=== PATIENT | female | born 1970 | race Caucasian/White ===

== ENCOUNTER 2016-11-25 09:26 | Emergency (ER) | payer OTHER ==
[~2016-11-25] VITALS: Ht 160 cm; Wt 100.2 kg
[~2016-11-25 09:26] MED LIST: ABILIFY30 MG PO; ACID CONTROL20 MG PO; ACIPHEX20 MG PO; ACTOS30 MG PO; ALBUTEROL17 GM IH; ALLEGRA ALLERG180 MG PO; ALLEGRA30 MG PO; ALPRAZOLAM0.25 MG PO; AMARYL2 MG PO; AMBIEN5 MG PO; AUGMENTIN875 MG PO; AZELASTINE205.5 MCG/ BOTH NARES; Advair HFA 115/21 IH; BUSPAR5 MG PO; CLARITIN10 MG PO; COUMADIN5 MG PO; DELTASONE20 MG PO; DICLOFENAC SODI50 MG PO; DILAUDID2 MG PO; EFFEXOR37.5 MG PO; FLEXERIL10 MG PO; GLUCOPHAGE1000 MG PO; GLUMETZA1000 M1 PO; GRALISE300 MG PO; HYCODAN SYRUP480 ML PO; KEFLEX500 MG PO; LANTUS 10100 UNITS/ SC; LANTUS 10100 UNITS/ SQ; LANTUS 3 M100 UNITS1 SC; LANTUS100 UNIT/2 SQ; LEVOTHYROXINE200 MC1 PO; LIPITOR40 MG PO; LOPRESSOR25 MG PO; LOVENOX100 MG/1 M SC; Lipitor PO; METFORMIN HCL1000 MG PO; METFORMIN HCL500 MG PO; MINOCIN100 MG PO; MOTRIN IB200 MG PO; MOTRIN400 MG PO; NEURONTIN300 MG PO; NEURONTIN600 MG PO; NOHOMEMEDS; NOVOLOG 10100 UNITS/ SC; NOVOLOG PE100 UNITS/ SC; OMEPRAZOLE40 M1 PO; OPANA ER10 MG PO; OXYCODONE HCL15 MG PO; OXYCONTIN30 MG PO; PERCOCET 5/31 TABLET PO; PRENATAL TABLE1 EAC3 PO; PROAIR HFA8.5 GM IH; PROVENTIL,2.5 MG/3 M IH; PROVENTIL17 GM IH; PROVENTIL2.5 MG/3 M IH; Proventil,Ventolin H IH; RIZATRIPTAN10 MG PO; ROBITUSSIN100 MG/5 M PO; ROXICODONE15 MG PO; SINGULAIR10 MG PO; SYNTHROID175 MCG PO; SYNTHROID200 MCG PO; TIZANIDINE HCL2 MG PO; TOPAMAX100 MG PO; TRAZODONE HCL50 MG PO; TRICOR; TRILIPIX135 MG PO; Tessalon Perle PO; Tylenol Regular Stre PO; VENLAFAXINE H37.5 M3 PO; VENLAFAXINE HCL75 M3 PO; VICODIN 5-3001 EACH PO; VICODIN 5-5001 EACH PO; VICTOZA 2-0.6 MG/0.1 SC; VITAMIN C1000 MG PO; VITAMIN D1000 INTUN PO; VITAMIN D10000 UNIT PO; VITAMIN D31000 UNI2 PO; VOLTAREN-XR100 MG PO; VOLTAREN50 MG PO; VYTORIN 10-801 EACH PO; XANAX0.25 MG PO; XANAX1 MG PO; ZANAFLEX4 M1 PO; ZESTRIL5 MG PO; ZITHROMAX Z-PA250 MG PO; ZOFRAN4 MG PO; ZOLOFT100 MG PO; ZOLPIDEM TARTRAT5 MG PO; ZUPLENZ4 MG PO; Zocor PO; [UNRECOGNIZED DRUG - OTHER] TP
[2016-11-25 10:32] LABS: HEMATOCRIT 43.6 % (36.0-46.0); MCH 32.8 PG (29.0-34.0); MCHC 34.4 G/DL (30.0-36.0); MCV 95.4 FL (83-99); MEAN PLAT.VOLUME 11.1 uM^3 (9.5-12.4); PLATELET COUNT 247 K/uL (156-360); RBC DIS.WIDTH-CV 12.5 % (11.8-14.6); RED BLOOD COUNT 4.57 M/uL (3.80-5.20); WHITE BLOOD COUNT 7.7 K/uL (4.1-10.2)
[2016-11-25 10:43] LABS: CHLORIDE 105 mEq/L (99-109); POTASSIUM 3.9 mEq/L (3.7-5.4); SODIUM 138 mEq/L (136-147)
[2016-11-25 10:45] LABS: GLUCOSE 173 mg/dL (70-99)
[2016-11-25 10:46] LABS: ANION GAP 10 MEQ/L (2-14)
[2016-11-25 10:48] LABS: GFR ESTIMATE (CALCULATED) > 59 mL/min/
[2016-11-25 10:49] LABS: UREA NITROGEN (BUN) 11 mg/dL (9-23)
[2016-11-25] MEDS ORDERED: MOTRIN800 MG PO (13:47)
[2016-11-25] MEDS ORDERED: AUGMENTIN875 MG PO (13:47)
[2016-11-25] MEDS ORDERED: NORCO 7.5/321 TABLET PO (13:48)
[2016-11-25 15:22] VITALS: BP 119/71
== END 2016-11-25 15:22 | disposition home or self-care (01) ==
LOC: EME 09:26 → RME 09:26
DX: K11.20 Sialoadenitis, unspecified (principal); R73.9 Hyperglycemia, unspecified
CPT/HCPCS: 70490; 80048; 85027; 99281; 99284; J1885; J3010; J7030

== ENCOUNTER 2016-11-27 10:14 | Inpatient (IN) | payer OTHER ==
[~2016-11-27] VITALS: Ht 160 cm; Wt 100.5 kg
[~2016-11-27 10:14] MED LIST changes: +MOTRIN800 MG PO; +NORCO 7.5/321 TABLET PO
[2016-11-27 12:46] LABS: BASOPHIL COUNT 0.1 K/uL (0-0.1); EOSINOPHIL (%) 2.4 % (0-5); EOSINOPHIL COUNT 0.2 K/uL (0-0.3); HEMATOCRIT 40.5 % (36.0-46.0); IMMATURE GRANULOCYTE (%) 0.1 % (0.0-0.7); IMMATURE GRANULOCYTE COUNT 0.1 K/uL; LYMPHOCYTE COUNT 2.2 K/uL (1.0-2.8); MCH 32.5 PG (29.0-34.0); MCHC 33.6 G/DL (30.0-36.0); MCV 96.7 FL (83-99); MEAN PLAT.VOLUME 10.5 uM^3 (9.5-12.4); MONOCYTE (%) 7.8 % (3-12); MONOCYTE COUNT 0.6 K/uL (0-0.8); NEUTROPHIL (%) 57.2 % (45-76); PLATELET COUNT 197 K/uL (156-360); RBC DIS.WIDTH-CV 12.3 % (11.8-14.6); RBC DIS.WIDTH-SD 41.9 % (39-53); RED BLOOD COUNT 4.19 M/uL (3.80-5.20)
[2016-11-27 12:55] LABS: CHLORIDE 106 mEq/L (99-109); POTASSIUM 4.1 mEq/L (3.7-5.4); SODIUM 138 mEq/L (136-147)
[2016-11-27 12:57] LABS: GLUCOSE 142 mg/dL (70-99)
[2016-11-27 12:58] LABS: ANION GAP 8 MEQ/L (2-14)
[2016-11-27 13:00] LABS: GFR ESTIMATE (CALCULATED) > 59 mL/min/
[2016-11-27 13:01] LABS: UREA NITROGEN (BUN) 8 mg/dL (9-23)
[2016-11-27] MEDS ORDERED: TOPAMAX200 MG PO (16:34)
[2016-11-27] MEDS ORDERED: LORAZEPAM0.5 MG PO (16:35)
[2016-11-27] MEDS ORDERED: ALBUTEROL2.5 MG/3 M IH (16:37)
[2016-11-27] MEDS ORDERED: CLEOCIN300 MG PO (16:41)
[2016-11-27] MEDS ORDERED: PROMETHAZINE HC25 M1 PO (16:42)
[2016-11-27 17:21] LABS: POINT-OF-CARE METER ID UU14100415
[2016-11-27 22:14] LABS: POINT-OF-CARE METER ID UU14100415
[2016-11-28 01:59] VITALS: BP 109/66
[2016-11-28 03:44] VITALS: BP 131/69
[2016-11-28 05:42] LABS: HEMATOCRIT 40.2 % (36.0-46.0); MCH 32.1 PG (29.0-34.0); MCHC 32.8 G/DL (30.0-36.0); MCV 97.8 FL (83-99); MEAN PLAT.VOLUME 10.7 uM^3 (9.5-12.4); PLATELET COUNT 219 K/uL (156-360); RBC DIS.WIDTH-CV 12.8 % (11.8-14.6); RBC DIS.WIDTH-SD 45.4 % (39-53); RED BLOOD COUNT 4.11 M/uL (3.80-5.20); WHITE BLOOD COUNT 7.9 K/uL (4.1-10.2)
[2016-11-28 06:06] LABS: ANION GAP 8 MEQ/L (2-14); CHLORIDE 102 MEQ/L (99-109); GFR ESTIMATE (CALCULATED) > 59 mL/min/; GLUCOSE 133 mg/dL (70-99); POTASSIUM 3.7 MEQ/L (3.7-5.4); SAMPLE HEMOLYSIS CHECK 0; SAMPLE ICTERIC CHECK 0; SAMPLE LIPEMIA CHECK 0; SODIUM 137 MEQ/L (136-147); UREA NITROGEN (BUN) 8 mg/dL (9-23)
[2016-11-28 07:50] VITALS: BP 128/88
[2016-11-28 11:43] LABS: POINT-OF-CARE METER ID UU13113698
[2016-11-28 11:47] VITALS: BP 134/86
[2016-11-28 15:54] LABS: POINT-OF-CARE METER ID UU13113698
[2016-11-28 16:19] VITALS: BP 135/75
[2016-11-29] VITALS (7 sets, daily range): BP systolic 116–153; BP diastolic 69–79
[2016-11-29 04:38] LABS: VANCOMYCIN, TROUGH 8.9 MCG/ML (10-20)
[2016-11-29 07:09] LABS: GFR ESTIMATE (CALCULATED) > 59 mL/min/; UREA NITROGEN (BUN) 6 mg/dL (9-23)
[2016-11-29 08:05] LABS: POINT-OF-CARE METER ID UU13113698
[2016-11-29 10:58] LABS: POINT-OF-CARE METER ID UU13113698
[2016-11-30 03:47] VITALS: BP 118/68
[2016-11-30 07:06] LABS: HEMATOCRIT 36.8 % (36.0-46.0); MCH 33.4 PG (29.0-34.0); MCHC 34.2 G/DL (30.0-36.0); MCV 97.6 FL (83-99); MEAN PLAT.VOLUME 11.1 uM^3 (9.5-12.4); PLATELET COUNT 201 K/uL (156-360); RBC DIS.WIDTH-CV 12.7 % (11.8-14.6); RBC DIS.WIDTH-SD 44.8 % (39-53); RED BLOOD COUNT 3.77 M/uL (3.80-5.20); WHITE BLOOD COUNT 7.4 K/uL (4.1-10.2)
[2016-11-30 07:35] LABS: ANION GAP 8 MEQ/L (2-14); CHLORIDE 108 MEQ/L (99-109); GFR ESTIMATE (CALCULATED) > 59 mL/min/; POTASSIUM 3.8 MEQ/L (3.7-5.4); SAMPLE HEMOLYSIS CHECK 0; SAMPLE ICTERIC CHECK 0; SAMPLE LIPEMIA CHECK 0; SODIUM 139 MEQ/L (136-147); UREA NITROGEN (BUN) 5 mg/dL (9-23)
[2016-11-30 07:38] LABS: GLUCOSE 217 mg/dL (70-99)
[2016-11-30 08:06] VITALS: BP 127/71
[2016-11-30 11:09] VITALS: BP 128/67
[2016-11-30 11:25] LABS: POINT-OF-CARE METER ID UU14174225
[2016-11-30 15:45] VITALS: BP 98/56
[2016-11-30 20:21] VITALS: BP 110/78
[2016-12-01 00:15] VITALS: BP 138/78
[2016-12-01 04:00] VITALS: BP 98/55
[2016-12-01 07:33] VITALS: BP 111/59
[2016-12-01 11:22] VITALS: BP 118/64
[2016-12-01] MEDS ORDERED: DOXYCYCLINE HY100 M3 PO (11:44)
== END 2016-12-01 13:38 | disposition home or self-care (01) | DRG 603 ==
LOC: EME 10:14 → 5SOUTH 13:51 → 4EAST 13:51 → EDOF 13:51 → 4EAST 11-28 01:53 → 5SOUTH 11-29 22:52
PROVIDERS: Emergency Medicine; Hospitalist; Internal Medicine
DX: L03.211 Cellulitis of face (principal); K11.3 Abscess of salivary gland; L03.221 Cellulitis of neck; F33.9 Major depressive disorder, recurrent, unspecified; D68.62 Lupus anticoagulant syndrome; E66.01 Morbid (severe) obesity due to excess calories; E11.9 Type 2 diabetes mellitus without complications; K11.21 Acute sialoadenitis; E03.9 Hypothyroidism, unspecified; E78.5 Hyperlipidemia, unspecified; R25.2 Cramp and spasm; G89.29 Other chronic pain; K21.9 Gastro-esophageal reflux disease without esophagitis; Z88.1 Allergy status to other antibiotic agents; Z68.39 Body mass index [BMI] 39.0-39.9, adult; Z91.040 Latex allergy status; Z98.1 Arthrodesis status; Z79.4 Long term (current) use of insulin; Z82.3 Family history of stroke; Z82.49 Family history of ischemic heart disease and other diseases of the circulatory system
CPT/HCPCS: 70491; 80048; 80202; 82565; 82948; 83605; 84520; 85025; 85027; 85651; 87040; 87493; 99281; 99285; J1170; J1200; J1815; J2270; J2405; J2543; J3370; J7030; J7050; S0028

== ENCOUNTER 2017-01-28 03:22 | Emergency (ER) | payer OTHER ==
[~2017-01-28] VITALS: Ht 162.6 cm; Wt 100.8 kg
[~2017-01-28 03:22] MED LIST changes: +ALBUTEROL2.5 MG/3 M IH; +CLEOCIN300 MG PO; +DOXYCYCLINE HY100 M3 PO; +LORAZEPAM0.5 MG PO; +PROMETHAZINE HC25 M1 PO; +TOPAMAX200 MG PO
[2017-01-28 03:49] LABS: HEMATOCRIT 43.5 % (36.0-46.0); MCH 31.7 PG (29.0-34.0); MCV 99.1 FL (83-99); MEAN PLAT.VOLUME 10.6 uM^3 (9.5-12.4); PLATELET COUNT 223 K/uL (156-360); RBC DIS.WIDTH-CV 12.8 % (11.8-14.6); RBC DIS.WIDTH-SD 46.5 % (39-53); RED BLOOD COUNT 4.39 M/uL (3.80-5.20); WHITE BLOOD COUNT 6.4 K/uL (4.1-10.2)
[2017-01-28 03:57] LABS: CHLORIDE 104 mEq/L (99-109); POTASSIUM 4.2 mEq/L (3.7-5.4); SODIUM 138 mEq/L (136-147)
[2017-01-28 03:59] LABS: GLUCOSE 261 mg/dL (70-99)
[2017-01-28 04:01] LABS: ANION GAP 9 MEQ/L (2-14)
[2017-01-28 04:03] LABS: GFR ESTIMATE (CALCULATED) > 59 mL/min/
[2017-01-28 04:04] LABS: UREA NITROGEN (BUN) 9 mg/dL (9-23)
[2017-01-28 04:14] LABS: TROP-I INTERPRETATION NEGATIVE; TROPONIN-I < 0.01 ng/mL (0.0-0.30)
[2017-01-28] MEDS ORDERED: VENTOLIN HFA18 GM IH (06:27)
[2017-01-28] MEDS ORDERED: TESSALON PERLE100 MG PO (06:27)
[2017-01-28] MEDS ORDERED: PREDNISONE5 M1 PO (06:27)
[2017-01-28 07:41] VITALS: BP 103/71
== END 2017-01-28 07:42 | disposition home or self-care (01) ==
LOC: EME 03:22
DX: J20.9 Acute bronchitis, unspecified (principal); E11.65 Type 2 diabetes mellitus with hyperglycemia; Z79.84 Long term (current) use of oral hypoglycemic drugs; E78.5 Hyperlipidemia, unspecified; K21.9 Gastro-esophageal reflux disease without esophagitis; Z88.8 Allergy status to other drugs, medicaments and biological substances; Z91.040 Latex allergy status; Z91.018 Allergy to other foods; Z88.1 Allergy status to other antibiotic agents; Z88.2 Allergy status to sulfonamides; Z91.048 Other nonmedicinal substance allergy status; Z91.030 Bee allergy status
CPT/HCPCS: 71020; 80048; 84484; 85027; 93005; 94640; 99281; 99285; J7512

== ENCOUNTER 2017-02-25 11:50 | Emergency (ER) | payer OTHER ==
[~2017-02-25] VITALS: Ht 160 cm; Wt 98.8 kg
[~2017-02-25 11:50] MED LIST changes: +PREDNISONE5 M1 PO; +TESSALON PERLE100 MG PO; +VENTOLIN HFA18 GM IH
[2017-02-25] MEDS ORDERED: LANTUS 3 M100 UNITS1 SC (12:13)
[2017-02-25] MEDS ORDERED: ASMANEX HFA13 GM IH (12:13)
[2017-02-25 13:08] LABS: BASOPHIL COUNT 0.1 K/uL (0-0.1); EOSINOPHIL (%) 1.3 % (0-5); EOSINOPHIL COUNT 0.1 K/uL (0-0.3); HEMATOCRIT 43.1 % (36.0-46.0); IMMATURE GRANULOCYTE (%) 0.8 % (0.0-0.7); IMMATURE GRANULOCYTE COUNT 0.1 K/uL; INSTRUMENT ABS NEUTROPHIL CT 6.3 K/uL; LYMPHOCYTE COUNT 2.6 K/uL (1.0-2.8); MCH 32.1 PG (29.0-34.0); MCHC 33.6 G/DL (30.0-36.0); MCV 95.4 FL (83-99); MEAN PLAT.VOLUME 10.9 uM^3 (9.5-12.4); MONOCYTE (%) 5.3 % (3-12); MONOCYTE COUNT 0.5 K/uL (0-0.8); NEUTROPHIL (%) 64.8 % (45-76); NEUTROPHIL COUNT 6.3 K/uL (1.8-6.4); PLATELET COUNT 258 K/uL (156-360); RBC DIS.WIDTH-CV 12.3 % (11.8-14.6); RBC DIS.WIDTH-SD 43.2 % (39-53); RED BLOOD COUNT 4.52 M/uL (3.80-5.20)
[2017-02-25 13:09] LABS: WHITE BLOOD COUNT 9.8 K/uL (4.1-10.2)
[2017-02-25 13:18] LABS: D-DIMER ELISA 0.42 mg/L FEU (< 0.57)
[2017-02-25 13:22] LABS: CHLORIDE 108 mEq/L (99-109); POTASSIUM 4.4 mEq/L (3.7-5.4); SODIUM 137 mEq/L (136-147)
[2017-02-25 13:23] LABS: GLUCOSE 221 mg/dL (70-99)
[2017-02-25 13:25] LABS: ANION GAP 13 MEQ/L (2-14)
[2017-02-25 13:27] LABS: GFR ESTIMATE (CALCULATED) > 59 mL/min/
[2017-02-25 13:28] LABS: UREA NITROGEN (BUN) 10 mg/dL (9-23)
[2017-02-25 13:34] LABS: TROP-I INTERPRETATION NEGATIVE; TROPONIN-I < 0.01 ng/mL (0.0-0.30)
[2017-02-25 14:08] VITALS: BP 132/84
== END 2017-02-25 14:09 | disposition home or self-care (01) ==
LOC: EME 11:50
PROVIDERS: Emergency Medicine
DX: R06.00 Dyspnea, unspecified (principal); R05 Cough; E11.9 Type 2 diabetes mellitus without complications; E78.5 Hyperlipidemia, unspecified; G89.29 Other chronic pain; Z87.442 Personal history of urinary calculi; Z91.040 Latex allergy status; Z88.1 Allergy status to other antibiotic agents
CPT/HCPCS: 80048; 84484; 85025; 85379; 93005; 99281; 99284

== ENCOUNTER 2017-05-12 15:35 | Emergency (ER) | payer OTHER ==
[~2017-05-12] VITALS: Ht 162.6 cm; Wt 102.0 kg
[~2017-05-12 15:35] MED LIST changes: +ASMANEX HFA13 GM IH
[2017-05-12] MEDS ORDERED: INDOCIN50 MG PO (19:36)
[2017-05-12] MEDS ORDERED: VALIUM5 MG PO (19:36)
[2017-05-12 20:24] VITALS: BP 146/69
== END 2017-05-12 20:25 | disposition home or self-care (01) ==
LOC: EME 15:35
DX: S29.012A Strain of muscle and tendon of back wall of thorax, initial encounter (principal); S16.1XXA Strain of muscle, fascia and tendon at neck level, initial encounter; S09.90XA Unspecified injury of head, initial encounter; S60.221A Contusion of right hand, initial encounter; S80.01XA Contusion of right knee, initial encounter; S80.211A Abrasion, right knee, initial encounter; S39.012A Strain of muscle, fascia and tendon of lower back, initial encounter; W18.30XA Fall on same level, unspecified, initial encounter; M79.7 Fibromyalgia; K21.9 Gastro-esophageal reflux disease without esophagitis; F32.9 Major depressive disorder, single episode, unspecified; E78.5 Hyperlipidemia, unspecified; G43.909 Migraine, unspecified, not intractable, without status migrainosus; Z79.4 Long term (current) use of insulin; G89.29 Other chronic pain; M54.41 Lumbago with sciatica, right side; M79.641 Pain in right hand
CPT/HCPCS: 72040; 72070; 72131; 73130; 73564; 99281; 99284; J3010

== ENCOUNTER 2018-03-20 09:06 | Emergency (ER) | payer OTHER ==
[~2018-03-20] VITALS: Ht 162.6 cm; Wt 98.1 kg
[~2018-03-20 09:06] MED LIST changes: +INDOCIN50 MG PO; +VALIUM5 MG PO
[2018-03-20 11:58] VITALS: BP 127/89
== END 2018-03-20 12:17 | disposition home or self-care (01) ==
LOC: EME 09:06
DX: S83.91XA Sprain of unspecified site of right knee, initial encounter (principal); M79.672 Pain in left foot; W18.30XA Fall on same level, unspecified, initial encounter; Y93.01 Activity, walking, marching and hiking; Y92.481 Parking lot as the place of occurrence of the external cause; Z91.040 Latex allergy status; Z88.2 Allergy status to sulfonamides; Z88.1 Allergy status to other antibiotic agents; Z88.8 Allergy status to other drugs, medicaments and biological substances
CPT/HCPCS: 73564; 73630; 99281; 99284